=== PATIENT | male | born 1970 | race Caucasian/White ===

== ENCOUNTER 2016-07-27 10:29 | Emergency (ER) | payer OTHER ==
[~2016-07-27] VITALS: Ht 170.2 cm; Wt 81.6 kg
[2016-07-27 10:41] VITALS: BP 152/76
[2016-07-27] MEDS ORDERED: NKM (10:44)
[2016-07-27] MEDS ORDERED: Bacitracin Oint UD TOPIC ONE ×2 (10:45→10:46)
[2016-07-27] MEDS ORDERED: TdaP Vaccine 0.5ml Syr IM ONE ×2 (10:45→10:47)
[2016-07-27] MEDS ORDERED: BACITRACIN15 GM TOPIC (11:09)
[2016-07-27] MEDS ORDERED: IBUPROFEN600 MG ORAL (11:09)
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
[2016-07-27 11:21] VITALS: BP 148/75
== END 2016-07-27 11:21 | disposition home or self-care (01) ==
LOC: EMR 10:45
DX: T22.51 Corrosion of first degree of forearm (principal); T22.512A Corrosion of first degree of left forearm, initial encounter; T22.511A Corrosion of first degree of right forearm, initial encounter; T54.91XA Toxic effect of unspecified corrosive substance, accidental (unintentional), initial encounter; Y93.G1 Activity, food preparation and clean up; Y99.0 Civilian activity done for income or pay; Z23 Encounter for immunization; Z87.891 Personal history of nicotine dependence; Z87.19 Personal history of other diseases of the digestive system
CPT/HCPCS: 90471; 90715; 99284